=== PATIENT | female | born 1940 | race Caucasian/White ===

== ENCOUNTER 2017-02-15 14:49 | Emergency (ER) | payer OTHER ==
[~2017-02-15] VITALS: Ht 157.5 cm; Wt 85.6 kg
[~2017-02-15 14:49] MED LIST: ANTIVERT12.5 MG PO; ANTIVERT25 MG PO; ASPIRIN81 M1 PO; ASPIRIN81 M2 PO; Aspirin E.C. PO; CARVEDILOL12.5 MG PO; CELEXA20 MG PO; CITALOPRAM HBR20 MG PO; COREG12.5 M1 PO; Colace PO; Coreg PO; Ditropan PO; GUMMI BEAR MUL1 EACH PO; GUMMY SWIRLS1 EACH PO; Glucophage PO; HYDROCHLOROTHIA50 MG PO; Hydrodiuril,Oretic,E PO; LEVOFLOXACIN750 MG PO; LIDODERM 5% P1 PATCH TD; LIPITOR40 MG PO; LISINOPRIL20 MG PO; LO-DOSE ASPIRIN81 M1 PO; Lipitor PO; METFORMIN HCL500 MG PO; NAPROXEN500 MG PO; Oscal 500 w/Vitamin PO; PLAVIX75 MG PO; STOOL SOFTENER100 MG PO; Theragran PO; Tylenol Regular Stre PO; VESICARE5 MG PO; WELLBUTRIN XL150 MG PO; XARELTO15 MG PO; Xarelto PO; celeXA PO
[2017-02-15 18:13] VITALS: BP 140/71
== END 2017-02-15 19:29 ==
LOC: EME 14:49
DX: S00.93XA Contusion of unspecified part of head, initial encounter (principal); W18.30XA Fall on same level, unspecified, initial encounter; Y93.01 Activity, walking, marching and hiking; Y92.122 Bedroom in nursing home as the place of occurrence of the external cause; E78.5 Hyperlipidemia, unspecified; I10 Essential (primary) hypertension; E11.9 Type 2 diabetes mellitus without complications; Z87.442 Personal history of urinary calculi; Z79.84 Long term (current) use of oral hypoglycemic drugs
CPT/HCPCS: 70450; 93005; 99281; 99284

== ENCOUNTER → 2018-02-25 | Outpatient (CLI) | payer OTHER | LOC: RAD 11:53 | DX: R22.41 Localized swelling, mass and lump, right lower limb (principal); M25.551 Pain in right hip; R26.2 Difficulty in walking, not elsewhere classified; M16.11 Unilateral primary osteoarthritis, right hip | CPT/HCPCS: 93971 ==